=== PATIENT | female | born 1940 | race African-American/Black ===

== ENCOUNTER 2016-05-10 17:09 | Inpatient (IN) | payer MEDICARE, OTHER ==
[~2016-05-10] VITALS: Ht 170.2 cm; Wt 81.5 kg
[2016-05-10] MEDS ORDERED: IOVERSOL 350 MG/ML 100 ML VIAL ONE (17:56)
[2016-05-10 18:51] LABS: GLUCOSE,POINT OF CARE > 600 MG/DL (70-110)
[2016-05-10 19:05] LABS: BASOPHILS % (AUTO) 0.5 % (0.0-2.0); EOSINOPHILS % (AUTO) 2.7 % (1.0-6.0); HEMATOCRIT 35.3 % (36-46); HEMOGLOBIN 10.9 g/dL (12.0-16.0); LYMPHOCYTES # (AUTO) 2.4 K/uL (1.0-4.8); MEAN CORPUSCULAR HEMOGLOBIN 21.6 pg (26.0-34.0); MEAN CORPUSCULAR HGB CONC 30.9 G/dL (31.0-37.0); MEAN CORPUSCULAR VOLUME 70 fL (80-100); MONOCYTES # (AUTO) 2.4 K/uL (0.1-1.0); MONOCYTES % (AUTO) 16.9 % (2.0-9.0); NEUTROPHILS # (AUTO) 8.9 K/uL (1.8-7.7); NEUTROPHILS % (AUTO) 62.9 % (40.0-70.0); PLATELET COUNT (AUTO) 221 K/uL (150-450); RED BLOOD CELL COUNT(AUTO) 5.06 MIL/uL (4.00-5.20); RED CELL DISTRIBUTION WIDTH 13.6 % (11.5-14.5); WHITE BLOOD COUNT (AUTO) 14.1 K/uL (4.5-11.0)
[2016-05-10] MEDS ORDERED: SODIUM CHLORIDE 0.9% 1,000 ML IV ONE ×3 (19:15→21:30)
[2016-05-10] MEDS ORDERED: LevETIRAcetam 1,000 MG in DEXTROSE 5%-WATER 100 ML IV ONE (19:30)
[2016-05-10] MEDS ORDERED: INSULIN REGULAR, HUMAN 100 UNITS/ML IVP ONE ×2 (19:30→21:30)
[2016-05-10 19:34] LABS: CARBON DIOXIDE 28 mmol/L (22-29); CHLORIDE 86 mmol/L (98-107); POTASSIUM 4.4 mmol/L (3.5-5.1)
[2016-05-10 19:35] LABS: ALANINE AMINOTRANSFERASE 15 U/L (12-78); ALBUMIN 3.3 g/dL (3.4-5.0); ASPARTATE AMINOTRANSFERASE 11 U/L (15-37); BILIRUBIN,TOTAL 0.6 mg/dL (0.1-1.0); CREATINE KINASE, TOTAL 117 U/L (26-192); CREATININE 2.25 mg/dL (0.60-1.30); GLOMERULAR FILTR. RATE CALC 26 mL/min (>60); TOTAL PROTEIN, SERUM 8.1 g/dL (6.4-8.2); UREA NITROGEN, BLOOD 43 mg/dL (7-18)
[2016-05-10 19:47] LABS: ANION GAP 10 mmol/L (8-16)
[2016-05-10 19:49] LABS: SODIUM SERUM 124 mmol/L (136-145)
[2016-05-10 19:50] LABS: B-TYPE NATRIURETIC PEPTIDE 17 pg/mL (0-100); RBC MORPHOLOGY COMMENT ABNORMAL RBC MORPH
[2016-05-10 19:53] LABS: CREATINE KINASE MB < 0.5 ng/mL (0-5)
[2016-05-10 20:14] LABS: ADD UA MICROSCOPIC YES; APPEARANCE,URINE CLEAR (CLEAR); GLUCOSE, URINE (UA) >=1000 mg/dL (NEGATIVE); KETONES,URINE NEGATIVE (NEGATIVE); LEUKOCYTE ESTERASE ,URINE NEGATIVE (NEGATIVE); OCCULT BLOOD,URINE SMALL (NEGATIVE); PH,URINE 5.5 (5.0-8.0); PROTEIN,URINE NEGATIVE (NEGATIVE)
[2016-05-10 20:16] LABS: GLUCOSE COMMENT 1 Doctor Notified; GLUCOSE,POINT OF CARE 570 MG/DL (70-110)
[2016-05-10 20:19] LABS: SQUAMOUS EPITHELIAL CELL,UR Rare /LPF (None Seen); WBC,URINE 0-2 /HPF (0-5)
[2016-05-10] MEDS ORDERED: ACETAMINOPHEN 325 MG TABLET PO PRN (20:30)
[2016-05-10] MEDS ORDERED: ZOLPIDEM TARTRATE 5 MG TABLET PO PRN (20:30)
[2016-05-10] MEDS ORDERED: OxyCODONE HCL/ACETAMINOPHEN 5-325 MG TABLET PO PRN (20:30)
[2016-05-10] MEDS ORDERED: DEXTROSE 50%-WATER 25 GM/50 ML SYRINGE IVP PRN (20:45)
[2016-05-10 20:52] LABS: GLUCOSE COMMENT 1 Doctor Notified; GLUCOSE,POINT OF CARE 451 MG/DL (70-110)
[2016-05-10 21:34] LABS: LACTIC ACID 3.8 mmol/L (0.4-2.0)
[2016-05-10 21:57] LABS: GLUCOSE,POINT OF CARE 327 MG/DL (70-110)
[2016-05-10 22:05] LABS: REFLEX LACTIC ACID? YES YES
[2016-05-10 22:51] LABS: GLUCOSE,POINT OF CARE 338 MG/DL (70-110)
[2016-05-10 22:55] LABS: ABG A-A DIFF O2 16.6 mmHg (10-20.0); ABG BASE EXCESS 0.5 mmol/L (-2.0-3.0); ABG HCO3 24.7 mmol/L (22.0-26.0); ABG OXYHEMOGLOBIN 94.5 % (94.0-100.0); ABG PCO2 45 mmHg (35-45); ABG PH 7.376 (7.35-7.450); TEMPERATURE, FAHRENHEIT, BG 98.6 FAHREN (96.0-98.6)
[2016-05-10] MEDS: INSULIN ASPART 100 UNITS/ML SQ PRN (23:07)
[2016-05-11] MEDS: HEPARIN SODIUM,PORCINE 5,000 UNITS/ML VIAL SQ SCH ×4 (00:03→23:28)
[2016-05-11] MEDS: CefTRIAXone 1 GM/DEXTROSE 50 ML IV SCH (00:39)
[2016-05-11 05:56] LABS: BILIRUBIN,TOTAL 0.4 mg/dL (0.1-1.0); CALCIUM, TOTAL 8.9 mg/dL (8.8-10.5); CHOL/HDL RATIO 3.5 (3.9-5.7); CREATININE 1.31 mg/dL (0.60-1.30); POTASSIUM 3.5 mmol/L (3.5-5.1); TOTAL PROTEIN, SERUM 7.2 g/dL (6.4-8.2)
[2016-05-11 06:01] LABS: BASOPHILS % (AUTO) 0.3 % (0.0-2.0); EOSINOPHILS % (AUTO) 3.9 % (1.0-6.0); HEMATOCRIT 32.6 % (36-46); LYMPHOCYTES # (AUTO) 4.4 K/uL (1.0-4.8); LYMPHOCYTES % (AUTO) 25.4 % (22.0-44.0); MEAN CORPUSCULAR HEMOGLOBIN 21.4 pg (26.0-34.0); MEAN CORPUSCULAR HGB CONC 30.7 G/dL (31.0-37.0); MEAN CORPUSCULAR VOLUME 70 fL (80-100); MONOCYTES # (AUTO) 3.1 K/uL (0.1-1.0); MONOCYTES % (AUTO) 17.6 % (2.0-9.0); NEUTROPHILS # (AUTO) 9.2 K/uL (1.8-7.7); NEUTROPHILS % (AUTO) 52.8 % (40.0-70.0); PLATELET COUNT (AUTO) 205 K/uL (150-450); RED BLOOD CELL COUNT(AUTO) 4.69 MIL/uL (4.00-5.20); WHITE BLOOD COUNT (AUTO) 17.3 K/uL (4.5-11.0)
[2016-05-11 07:07] LABS: HEMOGLOBIN A1C 12.8 % (4.5-6.2)
[2016-05-11 08:22] LABS: GLUCOSE,POINT OF CARE 266 MG/DL (70-110)
[2016-05-11 08:33] VITALS: BP 154/63
[2016-05-11 09:05] LABS: VITAMIN B12 LEVEL > 2000 pg/mL (211-911)
[2016-05-11] MEDS ORDERED: FERS325 PO (10:36)
[2016-05-11] MEDS ORDERED: HYDR25TA PO (10:36)
[2016-05-11] MEDS ORDERED: PIOG15TA13 PO (10:36)
[2016-05-11] MEDS ORDERED: OMEP20 PO (10:36)
[2016-05-11] MEDS ORDERED: VALS160T2 PO (10:36)
[2016-05-11] MEDS ORDERED: ATOR20TA86 PO (10:36)
[2016-05-11] MEDS ORDERED: PARO20TA24 PO (10:36)
[2016-05-11] MEDS ORDERED: SITA100 PO (10:36)
[2016-05-11 10:38] LABS: RBC MORPHOLOGY COMMENT ABNORMAL RBC MORPH
[2016-05-11] MEDS: PANTOPRAZOLE SODIUM 40 MG DR TABLET PO SCH (11:14)
[2016-05-11] MEDS: INSULIN ASPART 100 UNITS/ML SQ PRN ×3 (11:15→20:49)
[2016-05-11 11:24] VITALS: BP 119/63
[2016-05-11 15:58] VITALS: BP 116/71
[2016-05-11 19:32] VITALS: BP 121/53
[2016-05-11] MEDS: LevETIRAcetam 500 MG TABLET PO SCH (20:01)
[2016-05-11] MEDS: INSULIN DETEMIR 100 UNITS/ML SQ SCH (20:49)
[2016-05-11] MEDS ORDERED: SODIUM CHLORIDE 0.9% 250 ML IV ONE (23:50)
[2016-05-12 00:03] VITALS: BP 128/63
[2016-05-12] MEDS: CefTRIAXone 1 GM/DEXTROSE 50 ML IV SCH (00:13)
[2016-05-12 05:09] VITALS: BP 127/60
[2016-05-12] MEDS: INSULIN ASPART 100 UNITS/ML SQ PRN ×2 (06:05→10:49)
[2016-05-12 06:31] LABS: BASOPHILS % (AUTO) 0.5 % (0.0-2.0); EOSINOPHILS % (AUTO) 5.9 % (1.0-6.0); HEMATOCRIT 32.9 % (36-46); HEMOGLOBIN 10.1 g/dL (12.0-16.0); LYMPHOCYTES # (AUTO) 5.1 K/uL (1.0-4.8); LYMPHOCYTES % (AUTO) 30.9 % (22.0-44.0); MEAN CORPUSCULAR HEMOGLOBIN 21.6 pg (26.0-34.0); MEAN CORPUSCULAR HGB CONC 30.7 G/dL (31.0-37.0); MEAN CORPUSCULAR VOLUME 70 fL (80-100); MONOCYTES # (AUTO) 3.2 K/uL (0.1-1.0); MONOCYTES % (AUTO) 19.4 % (2.0-9.0); NEUTROPHILS # (AUTO) 7.2 K/uL (1.8-7.7); NEUTROPHILS % (AUTO) 43.3 % (40.0-70.0); PLATELET COUNT (AUTO) 249 K/uL (150-450); RED BLOOD CELL COUNT(AUTO) 4.68 MIL/uL (4.00-5.20); RED CELL DISTRIBUTION WIDTH 13.8 % (11.5-14.5); WHITE BLOOD COUNT (AUTO) 16.6 K/uL (4.5-11.0)
[2016-05-12 06:38] LABS: ALANINE AMINOTRANSFERASE 13 U/L (12-78); ALBUMIN 2.9 g/dL (3.4-5.0); ANION GAP 9 mmol/L (8-16); ASPARTATE AMINOTRANSFERASE 17 U/L (15-37); BILIRUBIN,TOTAL 0.5 mg/dL (0.1-1.0); CALCIUM, TOTAL 8.9 mg/dL (8.8-10.5); CARBON DIOXIDE 28 mmol/L (22-29); CHLORIDE 103 mmol/L (98-107); CREATININE 1.03 mg/dL (0.60-1.30); GLOMERULAR FILTR. RATE CALC > 60 mL/min (>60); POTASSIUM 3.5 mmol/L (3.5-5.1); SODIUM SERUM 140 mmol/L (136-145); TOTAL PROTEIN, SERUM 7.1 g/dL (6.4-8.2); UREA NITROGEN, BLOOD 17 mg/dL (7-18)
[2016-05-12] MEDS: PANTOPRAZOLE SODIUM 40 MG DR TABLET PO SCH (07:52)
[2016-05-12] MEDS: HEPARIN SODIUM,PORCINE 5,000 UNITS/ML VIAL SQ SCH (07:52)
[2016-05-12] MEDS: LevETIRAcetam 500 MG TABLET PO SCH (07:52)
[2016-05-12] MEDS: INSULIN DETEMIR 100 UNITS/ML SQ SCH (07:53)
[2016-05-12 07:56] VITALS: BP 133/68
[2016-05-12 08:38] LABS: RBC MORPHOLOGY COMMENT ABNORMAL RBC MORPH
[2016-05-12 11:15] VITALS: BP 123/64
[2016-05-12] MEDS ORDERED: INSNOV SQ (11:18)
[2016-05-12] MEDS ORDERED: LEVE500T53 PO (11:18)
[2016-05-12] MEDS ORDERED: INSU100V12 SQ (11:18)
[2016-05-12 13:22] LABS: GLUCOSE COMMENT 1 Received Meds; GLUCOSE,POINT OF CARE 250 MG/DL (70-110)
[2016-05-12 13:22] LABS: GLUCOSE COMMENT 1 Received Meds; GLUCOSE,POINT OF CARE 159 MG/DL (70-110)
[2016-05-12 13:22] LABS: GLUCOSE COMMENT 1 Received Meds; GLUCOSE,POINT OF CARE 216 MG/DL (70-110)
[2016-05-12 13:22] LABS: GLUCOSE COMMENT 1 Received Meds; GLUCOSE,POINT OF CARE 262 MG/DL (70-110)
== END 2016-05-12 13:00 | disposition home or self-care (01) | DRG 871 ==
LOC: EMS 17:10 → ICU 22:00 → UNDOADMIN 22:00 → 5S 22:00
PROVIDERS: ADMIT Hospitalist; ATTEND Hospitalist
DX: A41.9 Sepsis, unspecified organism (principal); E11.00 Type 2 diabetes mellitus with hyperosmolarity without nonketotic hyperglycemic-hyperosmolar coma (NKHHC); N17.0 Acute kidney failure with tubular necrosis; G93.41 Metabolic encephalopathy; R47.01 Aphasia; R56.9 Unspecified convulsions; E78.5 Hyperlipidemia, unspecified; N18.9 Chronic kidney disease, unspecified; I12.9 Hypertensive chronic kidney disease with stage 1 through stage 4 chronic kidney disease, or unspecified chronic kidney disease; E11.22 Type 2 diabetes mellitus with diabetic chronic kidney disease; D64.9 Anemia, unspecified
CPT/HCPCS: 70450; 70496; 82306; 82607; 82746; 82805; 82962; 83036; 83540; 83550; 83605; 83930; 84443; 93005; 96360; 96361; 96374; 96375; 99291; J0696; J0712; J1644; J1815; J7030; J7050; J7060